=== PATIENT | male | born 1960 | race Caucasian/White ===

== ENCOUNTER → 2020-07-14 | Outpatient (CLI) | payer BC ==
[~2020-07-14] MED LIST: ACEASPCAF PO; ACET325 PO; ASPI81CH PO; Adult Low Dose81 MG PO; DUTA.5 PO; IBUP800 PO; Ibuprofen Ib200 MG PO; META800 PO; NAPR500 PO; OXYACE5T PO; STAXYN10 MG PO; TRAM50 PO; Tylenol325 MG PO
== END | disposition home or self-care (01) ==
LOC: LAB EV 13:25 → LAB SHORT 13:25
DX: U07.1 COVID-19 (principal)
CPT/HCPCS: U0003

== ENCOUNTER → 2022-05-24 | Outpatient (CLI) | payer BC | END | disposition home or self-care (01) | LOC: LAB SHORT 17:32 | DX: R07.9 Chest pain, unspecified (principal) | CPT/HCPCS: 84484 ==

== ENCOUNTER 2025-07-05 03:22 | Emergency (ER) | payer BC ==
[~2025-07-05] VITALS: Ht 188 cm; Wt 95.2 kg
[2025-07-05] MEDS ORDERED: Lidocaine 2% Jelly Uro-Jet UR ONE (04:30)
[2025-07-05] MEDS ORDERED: Ondansetron HCl 2 MG / ML 2ML Vial IV ONE (04:45)
[2025-07-05] MEDS ORDERED: HYDROmorphone HCl/Pf 1MG SYR IV ONE (04:45)
[2025-07-05] MEDS ORDERED: Diazepam 5 MG / ML 2ML SYR IV ONE (05:45)
[2025-07-05 06:49] LABS: BASOPHILS ABSOLUTE AUTO 0.09 K/mm3 (0.00-0.23); BASOPHILS PERCENT AUTO 1 % (0-2); EOSINOPHILS ABSOLUTE AUTO 0.34 K/mm3 (0.00-0.68); EOSINOPHILS PERCENT AUTO 4 % (0-6); Hematocrit 43.5 % (37.0-53.0); Hemoglobin 14.9 g/dL (13.5-17.5); IMMATURE GRAN ABSOLUTE AUTO 0.05 K/mm3 (0.00-0.10); IMMATURE GRAN PERCENT AUTO 1 % (0-1); LYMPHOCYTES ABSOLUTE AUTO 3.02 K/mm3 (0.84-5.20); LYMPHOCYTES PERCENT AUTO 34 % (21-46); MONOCYTES ABSOLUTE AUTO 0.78 K/mm3 (0.16-1.47); MONOCYTES PERCENT AUTO 9 % (4-13); Mean Corpuscular HGB Conc 34.3 g/dL (31.5-36.5); Mean Corpuscular Volume 86 fL (80-100); NEUTROPHILS ABSOLUTE AUTO 4.63 K/mm3 (1.96-9.15); NEUTROPHILS PERCENT AUTO 52 % (41-73); NRBC ABSOLUTE 0.00 K/mm3 (0.00-0.02); NRBC Auto 0.0 /100 WBC (0.0-0.2); Platelet Count 259 K/mm3 (150-400); RDW Coefficient Variation 13.7 % (11.7-14.2); RDW Standard Deviation 42.7 fL (35.1-46.3)
[2025-07-05 06:58] LABS: Alanine Aminotransfer (ALT/SGP 29.0 U/L (12-78); Albumin, Blood 3.7 g/dL (3.4-5.0); Albumin/Globulin Ratio 1.0 (0.8-1.8); Anion Gap 14.0 mmol/L (3-11); Aspartate Aminotrans (AST/SGOT 19.0 U/L (12-37); Bilirubin, Total 0.7 mg/dL (0.1-1.0); Blood Urea Nitrogen 15.0 mg/dL (8-24); CO2, Blood 23.0 mmol/L (21-32); Calcium, Blood 9.3 mg/dL (8.5-10.1); Chloride, Blood 104.0 mmol/L (98-108); Creatinine, Blood 0.87 mg/dL (0.60-1.20); Globulin, Blood 3.7 g/dL (2.2-4.0); Glucose, Blood 105.0 mg/dL (70-99); Potassium, Blood 3.6 mmol/L (3.5-5.5); Sodium, Blood 137.0 mmol/L (136-145); Total Protein, Blood 7.4 g/dL (6.4-8.2)
[2025-07-05 07:50] VITALS: BP 111/73
== END 2025-07-05 07:47 | disposition home or self-care (01) ==
LOC: ER 03:22
PROVIDERS: Emergency Medicine
DX: N99.89 Other postprocedural complications and disorders of genitourinary system (principal); N32.0 Bladder-neck obstruction; R31.0 Gross hematuria; Z88.8 Allergy status to other drugs, medicaments and biological substances; Z79.82 Long term (current) use of aspirin; Z79.899 Other long term (current) drug therapy; Z59.89 Other problems related to housing and economic circumstances
CPT/HCPCS: 51700; 51702; 51798; 80053; 85025; 96374-59; 96375-59; 99283-25; J1171; J2405; J3360